=== PATIENT | female | born 1940 | race Caucasian/White ===

== ENCOUNTER 2021-03-14 10:22 | Outpatient (CLI) | payer MEDICARE | END 2021-03-14 10:23 | disposition home or self-care (01) | LOC: ULT 10:22 | PROVIDERS: ATTEND Family Medicine | DX: M79.604 Pain in right leg (principal); M25.571 Pain in right ankle and joints of right foot ==

== ENCOUNTER 2021-03-22 08:39 | Outpatient (CLI) | payer MEDICARE | END 2021-03-22 08:40 | disposition home or self-care (01) | LOC: BICMAMMO 08:39 | PROVIDERS: ATTEND Family Medicine | DX: Z13.820 Encounter for screening for osteoporosis (principal); N95.9 Unspecified menopausal and perimenopausal disorder; M85.88 Other specified disorders of bone density and structure, other site | CPT/HCPCS: 77080 ==

== ENCOUNTER 2021-08-02 09:16 | Outpatient (CLI) | payer MEDICARE ==
[2021-08-02 10:58] LABS: #Basophils 0.1 10x3/uL (0.0-0.2); #Eosinphils 0.2 10x3/uL (0.0-0.5); #Monocytes 0.5 10x3/uL (0.0-1.1); #Neutrophils 3.2 10x3/uL (1.5-8.4); %Eosinophils 2.7 % (0.0-6.0); %Lymphocytes 34.3 % (18.0-47.0); %Neutrophils 52.8 % (40.0-75.0); Hemoglobin 13.5 g/dL (12.0-15.5); Mean Corpuscular HGB CONC 33.8 g/dL (32.0-36.0); Mean Corpuscular Volume 91.7 fl (81.6-98.3); Mean Platelet Volume 10.1 fl (7.4-10.4); Platelet Count 267 10x3/uL (150-450); RBC Distribution Width 12.2 % (11.5-14.5); Red Blood Cell (RBC) Count 4.35 10x6/uL (3.90-5.03)
[2021-08-02 11:14] LABS: Anion Gap 15 mmol/L (10-20); BUN (Urea Nitrogen) 17 mg/dL (9.8-20.1); Calc. Creatinine Clearance 0 mL/min (70-130); Calcium 9.7 mg/dL (7.8-10.44); Carbon Dioxide 26 mmol/L (23-31); Chloride 104 mmol/L (98-107); Glucose 96 mg/dL (83-110); Potassium 4.7 mmol/L (3.5-5.1); Sodium 140 mmol/L (136-145)
[2021-08-02 18:14] LABS: SARS-CoV-2 PCR by NAA Not Detected (NotDetected)
== END 2021-08-02 09:17 | disposition home or self-care (01) ==
LOC: LABBT 09:16
PROVIDERS: ATTEND Orthopaedic Surgery Hand Surgery
DX: Z01.812 Encounter for preprocedural laboratory examination (principal); M67.442 Ganglion, left hand; Z20.822 Contact with and (suspected) exposure to COVID-19
CPT/HCPCS: 80048; 85025; U0003; U0005

== ENCOUNTER 2021-08-07 09:18 | Day surgery (SDC) | payer MEDICARE ==
[2021-08-02 11:30] VITALS: BMI 25.4
[2021-08-07] MEDS ORDERED: Bupivacaine PF 0.5% 30 ML VIAL ONE (12:26)
[2021-08-07] MEDS ORDERED: fentaNYL Citrate/PF 100 MCG/2 ML SYRINGE ONE (13:08)
[2021-08-07] MEDS ORDERED: Clindamycin/D5W 600 mg/50 ml Premix Bag ONE (13:17)
[2021-08-07] MEDS ORDERED: Propofol 500 MG/50 ML VIAL ONE (13:29)
[2021-08-07] MEDS ORDERED: Levofloxacin 500 mg/D5W 100 ml Premix Bag ONE (13:34)
[2021-08-07] MEDS ORDERED: Lidocaine 1% PF 5 ML VIAL ONE (13:41)
[2021-08-07] MEDS ORDERED: Ketorolac Tromethamine 30 MG/ML VIAL ONE (15:14)
== END 2021-08-07 15:41 | disposition home or self-care (01) ==
LOC: SDC 09:18
PROVIDERS: ATTEND Orthopaedic Surgery Hand Surgery
PROC: 0LB80ZZ Excision of Left Hand Tendon, Open Approach (ICD-10-PCS; principal; 2021-08-07)
DX: M67.442 Ganglion, left hand (principal); M18.12 Unilateral primary osteoarthritis of first carpometacarpal joint, left hand; M19.042 Primary osteoarthritis, left hand; E89.0 Postprocedural hypothyroidism; Z87.891 Personal history of nicotine dependence; Z79.890 Hormone replacement therapy; Z88.0 Allergy status to penicillin
CPT/HCPCS: 88304; J1885; J1956; J2704; J3490; S0020

== ENCOUNTER 2022-04-04 12:13 | Outpatient (CLI) | payer MEDICARE | END 2022-04-04 12:14 | disposition home or self-care (01) | LOC: CT 12:13 | PROVIDERS: ATTEND Radiology Radiation Oncology | DX: C32.1 Malignant neoplasm of supraglottis (principal) | CPT/HCPCS: 70491; 71260 ==

== ENCOUNTER → 2022-04-16 | Outpatient (CLI) | payer MEDICARE | LOC: PET 09:30 | PROVIDERS: ATTEND Radiology Radiation Oncology | DX: C32.9 Malignant neoplasm of larynx, unspecified (principal) | CPT/HCPCS: 78815; A9552 ==

== ENCOUNTER 2022-05-07 08:47 | Outpatient (CLI) | payer MEDICARE | END 2022-05-07 08:48 | disposition home or self-care (01) | LOC: RAD 08:47 | PROVIDERS: ATTEND Radiology Radiation Oncology | DX: R13.12 Dysphagia, oropharyngeal phase (principal); D14.1 Benign neoplasm of larynx | CPT/HCPCS: 74230 ==

== ENCOUNTER 2022-08-21 12:32 | Outpatient (CLI) | payer MEDICARE | END 2022-08-21 12:33 | disposition home or self-care (01) | LOC: RAD 12:32 | PROVIDERS: ATTEND Radiology Radiation Oncology | DX: R13.10 Dysphagia, unspecified (principal); R63.30 Feeding difficulties, unspecified; Z85.21 Personal history of malignant neoplasm of larynx | CPT/HCPCS: 74230 ==

== ENCOUNTER 2022-08-22 09:30 | Outpatient (CLI) | payer MEDICARE | END 2022-08-22 09:31 | disposition home or self-care (01) | LOC: PET 09:30 | PROVIDERS: ATTEND Radiology Radiation Oncology | DX: C32.1 Malignant neoplasm of supraglottis (principal) | CPT/HCPCS: 78815; A9552 ==

== ENCOUNTER 2023-12-18 15:25 | Outpatient (CLI) | payer MEDICARE | END 2023-12-18 15:26 | disposition home or self-care (01) | LOC: ULT 15:25 | PROVIDERS: ATTEND Family Medicine | DX: M79.605 Pain in left leg (principal); M79.89 Other specified soft tissue disorders ==